=== PATIENT | female | born 1970 | race African-American/Black ===

== ENCOUNTER 2017-02-20 12:40 | Emergency (ER) | payer BC, OTHER ==
[~2017-02-20] VITALS: Ht 170.2 cm; Wt 74.8 kg
[~2017-02-20 12:40] MED LIST: CLARITIN10 MG; FLEXERIL PO; NAPROSYN500 MG PO; NO MEDS; NOHOMEMEDICATIONS; NORCO 5-325 TA1 EACH PO; PHENERGAN 25 MG25 M1 PO; PROMETHAZINE12.5 M1 PO; PROTONIX40 M2 PO; VITAMIN E100 UNI2; ZOFRAN ODT4 MG DISSOLVE; ZOFRAN4 MG PO
[2017-02-20 13:54] LABS: ABSOLUTE NEUTROPHILS 3.6 thou/uL (1.4-8.2); BASOPHILS 0.6 % (0.0-2.0); EOSINOPHILS 2.2 % (0.0-3.0); HEMATOCRIT 40.8 % (37.0-47.0); HEMOGLOBIN 13.4 gm/dL (12.0-15.0); LYMPHOCYTES 37.6 % (24.0-44.0); MCH 31.9 pg (26.0-34.0); MCHC 32.8 g/dL (28.0-37.0); MCV 97.2 fL (80.0-100.0); PLATELET COUNT 321 thou/uL (150-400); POLYS 51.6 % (36.0-66.0); RBC 4.19 mil/uL (4.20-5.00); RDW 14.6 % (10.5-14.5)
[2017-02-20 13:56] LABS: MANUAL DIFF NO
[2017-02-20 14:00] LABS: CALCIUM 8.9 mg/dL (8.5-10.1); CREATININE 0.7 mg/dL (0.6-1.0); POTASSIUM 3.8 mmol/L (3.5-5.1)
[2017-02-20] MEDS ORDERED: KEFLEX500 M1 PO (14:41)
[2017-02-20] MEDS ORDERED: IBUPROFEN 800800 M1 PO (14:41)
== END 2017-02-20 14:49 | disposition home or self-care (01) ==
LOC: ER 12:40
PROVIDERS: Physician Assistant
DX: M65.841 Other synovitis and tenosynovitis, right hand (principal); Z88.5 Allergy status to narcotic agent